=== PATIENT | female | born 1955 | race Two or more races ===

== ENCOUNTER 2020-07-20 11:34 | Emergency (ER) | payer OTHER ==
[~2020-07-20] VITALS: Ht 160 cm; Wt 81.6 kg
[2020-07-20 11:48] VITALS: BP 136/76
== END 2020-07-20 13:36 | disposition home or self-care (01) ==
LOC: ER 11:40
DX: M71.21 Synovial cyst of popliteal space [Baker], right knee (principal); J45.909 Unspecified asthma, uncomplicated
CPT/HCPCS: 73564-TC; 93971-TC

== ENCOUNTER 2022-05-23 08:10 | Emergency (ER) | payer MEDICARE, OTHER ==
[~2022-05-23] VITALS: Ht 160 cm; Wt 86.2 kg
[2022-05-23 08:19] VITALS: BP 138/74
[2022-05-23] MEDS ORDERED: diphenhydrAMINE HCL 25 MG CAPSULE PO ONE (09:00)
[2022-05-23] MEDS ORDERED: diphenhydrAMINE HCL 50 MG CAPSULE ONE (09:06)
[2022-05-23] MEDS ORDERED: DIPH25CA83 PO (09:57)
--- NOTE | 2022-05-23 10:06 | NUR ---
Patient discharged to home in stable condition. Written and verbal after care instructions given. Patient verbalizes understanding of instruction.
== END 2022-05-23 10:05 | disposition home or self-care (01) ==
LOC: ER 08:14
DX: T78.40XA Allergy, unspecified, initial encounter (principal); J45.909 Unspecified asthma, uncomplicated; Z79.899 Other long term (current) drug therapy; X58.XXXA Exposure to other specified factors, initial encounter
CPT/HCPCS: 99282; Q0163

== ENCOUNTER 2023-02-08 20:10 | Inpatient (IN) | payer OTHER ==
[~2023-02-08] VITALS: Ht 160 cm; Wt 86.6 kg
[~2023-02-08 20:10] MED LIST: DIPH25CA83 PO
--- NOTE | 2023-02-08 20:41 | NUR ---
PT UNABLE TO PROVIDE URINE AT THIS TIME, URINE CUP PROVIDED
--- NOTE | 2023-02-08 20:45 | NUR ---
PATIENT C/O ABD PAIN 10/10 AND CONSTIPATION X 3 DAYS DENIES N/V AND FEVER. TO BED 1. A/OX4. CONNECTED TO MONITOR.
--- NOTE | 2023-02-08 20:58 | NUR ---
GEOGRAPHIC AREA INTELLIGENCE OFFICER AT BEDSIDE
[2023-02-08 21:12] LABS: BASOPHILS % (AUTO) 0.1 % (0.0-2.0); EOSINOPHILS % (AUTO) 0.6 % (0.0-6.0); HEMATOCRIT 40 % (33-45); LYMPHOCYTES # (AUTO) 2.1 K/uL (0.8-4.8); LYMPHOCYTES % (AUTO) 16.6 % (20.0-44.0); MEAN CORPUSCULAR HGB CONC 32 g/dl (31.0-36.0); MEAN CORPUSCULAR VOLUME 80 fL (82-100); MONOCYTES # (AUTO) 0.9 K/uL (0.1-1.30); MONOCYTES % (AUTO) 7.1 % (2.0-12.0); NEUTROPHILS # (AUTO) 9.4 K/uL (1.8-8.9); NEUTROPHILS % (AUTO) 75.6 % (43.0-81.0); PLATELET COUNT (AUTO) 272 K/uL (150-450); RED BLOOD CELL COUNT(AUTO) 5.05 MIL/uL (4.0-5.2); WHITE BLOOD COUNT (AUTO) 12.5 K/uL (4.3-11.0)
--- NOTE | 2023-02-08 21:33 | NUR ---
COLLECTED URINE. SENT TO LAB.
--- NOTE | 2023-02-08 21:35 | NUR ---
PATIENT TAKEN TO CT
--- NOTE | 2023-02-08 21:45 | NUR ---
PATIENT BACK FROM CT
[2023-02-08 21:47] LABS: ALBUMIN 3.4 g/dL (3.4-5.0); BILIRUBIN,DIRECT 0.1 mg/dL (0.0-0.2); BILIRUBIN,TOTAL 0.5 mg/dL (0.2-1.0); CALCIUM, SERUM 8.8 mg/dL (8.5-10.1); CREATININE 0.7 mg/dL (0.6-1.3); POTASSIUM 3.4 mmol/L (3.5-5.1); TOTAL PROTEIN, SERUM 7.6 g/dL (6.4-8.2)
[2023-02-08] MEDS ORDERED: ONDANSETRON HCL/PF 4 MG/2 ML VIAL IVP ONE (22:00)
[2023-02-08] MEDS ORDERED: MORPHINE SULFATE INJ 2 MG/ML DISP.SYRIN IV ONE (22:00)
[2023-02-08] MEDS ORDERED: PIPERACILLIN /TAZOBACTAM 3.375 G in IV D5W 50 ML IV ONE (22:00)
--- NOTE | 2023-02-08 22:02 | NUR ---
RODAS ON THE PHONE WITH DR PALM
--- NOTE | 2023-02-08 22:15 | NUR ---
COVID SWAB COLLECTED AND SENT TO LAB
[2023-02-08] MEDS ORDERED: PIPERACILLIN /TAZOBACTAM 3.375 G VIAL IV ONE (22:24)
[2023-02-08] MEDS ORDERED: ONDANSETRON HCL/PF 4 MG/2 ML VIAL ONE (22:24)
[2023-02-08] MEDS ORDERED: MORPHINE SULFATE INJ 4 MG/ML DISP.SYRIN ONE (22:25)
--- NOTE | 2023-02-08 22:51 | NUR ---
XRAY AT BEDSIDE
[2023-02-08] MEDS ORDERED: hydrALAZINE HCL IV 20 MG VIAL IV PRN (23:00)
[2023-02-08] MEDS ORDERED: MORPHINE SULFATE INJ 2 MG/ML DISP.SYRIN IV PRN (23:00)
--- NOTE | 2023-02-08 23:10 | NUR ---
SPOKE TO TRAY SUPERVISOR FLOOR ASSEMBLY ON THE PHONE. CLININCALS GIVEN AND REC'D AUTH TO KEEP THE PT INPATIENT
--- NOTE | 2023-02-08 23:11 | NUR ---
room assigned [id number]
--- NOTE | 2023-02-08 23:15 | NUR ---
REPORT GIVEN TO MARJORIE WRIGHT.
--- NOTE | 2023-02-08 23:39 | NUR ---
TRANSFERRED TO THIRD FLOOR IN STABLE CONDITION
--- NOTE | 2023-02-08 23:41 | NUR ---
TRANDFERED VIA ACLS PROTOCOL
[2023-02-08] MEDS ORDERED: CEFEPIME 2 GM in IV D5W 100 ML IV ONE (23:45)
[2023-02-09] VITALS (10 sets, daily range): BP systolic 96–137; BP diastolic 55–70
[2023-02-09] MEDS: IV NS 0.9% 1,000 ML IV SCH ×2 (00:09→17:44)
[2023-02-09] MEDS: ONDANSETRON HCL/PF 4 MG/2 ML VIAL IVP PRN (00:11)
--- NOTE | 2023-02-09 00:30 | NUR ---
MS SPRING MACHINE OPERATOR NOTE RECEIVED REPORT FROM ER-RN GARRETT. PATIENT WAS BROUGHT TO THE UNIT AT AROUND 2340 VIA STRETCHER, ACCOMPANIED BY 2 ER STAFF. PATIENT WAS ADMITTED D/T ABDOMINAL PAIN AND CONSTIPATION FOR 3 DAYS. PATIENT IS ALERT AND ORIENTED X4. [place] SPEAKING BUT ABLE TO UNDERSTAND [place] CITIZ[place]. ABLE TO COMMUNICATE NEEDS WITH THE STAFFS. AFEBRILE AND NOT IN ANY FORM OF ACUTE DISTRESS. BREATHING EVEN AND NON LABORED. LUNG SOUNDS CLEAR ON AUSCULTATION. WITH IV ACCESS ON [facility] 20G-SL. EXPLAINED ADMISSION PROCESS WHICH INCLUDES SKIN ASSESSMENT WHICH THE PATIENT AGREED. SKIN IS INTACT UPON ADMISSION. BELONGINGS AND VALUABLES CHECKED AND DOCUMENTED. PATIENT MAINTAINED ON NPO ORDERED. STARTED IV FLUID OF NS AT 75ML/HR. SAFETY MEASURES IN PLACE. KEPT BED IN LOCKED AND IN LOW POSITION. SIDE RAILS UP X2. ADVISED TO USE THE CALL LIGHT WHEN IN NEED OF ASSISTANCE.
[2023-02-09] MEDS ORDERED: CEFEPIME 1 GM VIAL ONE (01:08)
[2023-02-09 04:47] LABS: BILIRUBIN,URINE NEGATIVE (NEGATIVE); COLOR,URINE YELLOW (YELLOW); LEUKOCYTE ESTERASE ,URINE NEGATIVE (NEGATIVE); NITRITE, URINE NEGATIVE (NEGATIVE); PROTEIN,URINE NEGATIVE (NEGATIVE); UGLUCOSE NEGATIVE (NEGATIVE); UROBILINOGEN,URINE 0.2 EU/dL (0.2)
[2023-02-09 06:05] LABS: BASOPHILS % (AUTO) 0.1 % (0.0-2.0); EOSINOPHILS % (AUTO) 0.3 % (0.0-6.0); HEMATOCRIT 38 % (33-45); LYMPHOCYTES # (AUTO) 2.1 K/uL (0.8-4.8); LYMPHOCYTES % (AUTO) 16.4 % (20.0-44.0); MEAN CORPUSCULAR HGB CONC 32 g/dl (31.0-36.0); MEAN CORPUSCULAR VOLUME 81 fL (82-100); MONOCYTES # (AUTO) 0.7 K/uL (0.1-1.30); MONOCYTES % (AUTO) 5.8 % (2.0-12.0); NEUTROPHILS # (AUTO) 9.8 K/uL (1.8-8.9); NEUTROPHILS % (AUTO) 77.4 % (43.0-81.0); PLATELET COUNT (AUTO) 272 K/uL (150-450); RED BLOOD CELL COUNT(AUTO) 4.66 MIL/uL (4.0-5.2); WHITE BLOOD COUNT (AUTO) 12.7 K/uL (4.3-11.0)
[2023-02-09 06:26] LABS: BILIRUBIN,TOTAL 0.5 mg/dL (0.2-1.0); CALCIUM, SERUM 8.3 mg/dL (8.5-10.1); CREATININE 0.7 mg/dL (0.6-1.3); MAGNESIUM 2.1 mg/dL (1.8-2.4); PHOSPHORUS 4.7 mg/dL (2.5-4.9)
--- NOTE | 2023-02-09 06:26 | NUR ---
MS RN CLOSING NOTE PATIENT IN BED, ASLEEP BUT EASY TP AROUSE AND RESPONSIVE. AFEBRILE AND NOT IN ANY FORM OFACUTE DISTRESS. BREATHING EVEN AND NON LABORED. WITH IV ACCESS ON RAC 20G RUNNING WITH NS AT 75ML/HR. MEDICATED ORDERED. ON IV ATB, MONITORED FOR ANY ADVERSE REACTION. MAINTAINED ON NPO ORDERED. SAFETY MEASURES IN PLACE. KEPT BED IN LOCKED AND IN LOW POSITION.SIDE RAILS UP X2. ADVISED TO USE THE CALL LIGHT WHEN IN NEED OF ASSISTANCE. ALL NURSING NEEDS ATTENDED. ENDORSED TO INCOMING SHIFT FOR CONTINUITY OF CARE.
--- NOTE | 2023-02-09 07:20 | NUR ---
ms rn received on bed, awake,alert,oriented x4,not in any form of distress, respirations even and unlabored,no sob noted, on room air w/ adequate saturation, patient is for abd surgery today w/ dr. taveras, npo at this time,all needs attended.
[2023-02-09] MEDS ORDERED: LIDOCAINE 1% INJ 50 ML MDV IJ ONE (08:51)
[2023-02-09] MEDS ORDERED: BUPIVACAINE MPF 0.5% W/EPI INJ 30 ML VIAL ONE (08:51)
[2023-02-09] MEDS ORDERED: ROCURONIUM BROMIDE 50 MG/5 ML ONE (09:13)
[2023-02-09] MEDS ORDERED: BACITRACIN ZINC OINT PACKET 1 EA PACKET TP ONE (10:54)
[2023-02-09] MEDS ORDERED: FENTANYL PF 100MCG/2ML AMPUL ONE (11:52)
[2023-02-09] MEDS ORDERED: KETOROLAC TROMETHAMINE INJ 30 MG/ML VIAL ONE (11:57)
--- NOTE | 2023-02-09 12:45 | NUR ---
ms rn patient came from surgery awake,oriented x4, s/p small intestine resection w/ dr taveras, surgical sites w/ dressing dry and intact, patient w/ clear liquid diet in am, repositioned for comfort, v/s stable and monitored.
[2023-02-09] MEDS: CEFEPIME 2 GM in IV D5W 100 ML IV SCH ×2 (13:00→20:39)
--- NOTE | 2023-02-09 18:32 | NUR ---
ms rn patient on bed, denies pain at this time, surgical dressing dry and intact, iv infusion on,all needs attended.
--- NOTE | 2023-02-09 19:42 | NUR ---
MS RN OPENING NOTE RECEIVED PATIENT IN BED AWAKE A/O X4. NOT IN ANY FORMS OF DISTRESS NOT IN PAIN AT THIS MOMENT. PATIENT ON ROOM AIR TOLERATING WELL; NO SIGNS OF SOB NOTED. IV ACCESS ON RAC #20 NOTED TO BE PATENT AND INTACT INFUSING NS 0.9% @ 75CC/HR. ABDOMINAL SURGERY SITE ACCESSED; DRESSING IS NOTED TO BE CLEAN AND INTACT. SAFETY MEASURES IMPLEMENTED; BED LOCKED AND IN LOWEST POSITION, SIDE RAILS UP X2, CALL LIGHT AND BEDSIDE TABLE WITHIN PATIENTS REACH.
[2023-02-10] MEDS: IV NS 0.9% 1,000 ML IV SCH ×2 (02:05→15:00)
[2023-02-10 05:54] LABS: EOSINOPHILS % (AUTO) 0.1 % (0.0-6.0); HEMATOCRIT 36 % (33-45); HEMOGLOBIN 11.4 g/dL (11.5-14.8); LYMPHOCYTES # (AUTO) 1.3 K/uL (0.8-4.8); LYMPHOCYTES % (AUTO) 10.1 % (20.0-44.0); MEAN CORPUSCULAR HGB CONC 32 g/dl (31.0-36.0); MEAN CORPUSCULAR VOLUME 81 fL (82-100); MONOCYTES # (AUTO) 0.8 K/uL (0.1-1.30); MONOCYTES % (AUTO) 6.2 % (2.0-12.0); NEUTROPHILS # (AUTO) 10.9 K/uL (1.8-8.9); NEUTROPHILS % (AUTO) 83.6 % (43.0-81.0); PLATELET COUNT (AUTO) 246 K/uL (150-450); RED BLOOD CELL COUNT(AUTO) 4.43 MIL/uL (4.0-5.2); WHITE BLOOD COUNT (AUTO) 13.1 K/uL (4.3-11.0)
[2023-02-10 06:09] LABS: CREATININE 0.7 mg/dL (0.6-1.3); MAGNESIUM 1.8 mg/dL (1.8-2.4); PHOSPHORUS 3.4 mg/dL (2.5-4.9); POTASSIUM 3.6 mmol/L (3.5-5.1)
[2023-02-10] MEDS: ONDANSETRON HCL/PF 4 MG/2 ML VIAL IVP PRN (06:26)
--- NOTE | 2023-02-10 06:40 | NUR ---
MS RN CLOSING NOTE PATIENT IN BED SLEEPING EASILY AWAKEN WHEN CALLED BY NAME. A/O X4. NOT IN ANY FORMS OF DISTRESS NOT IN PAIN AT THIS MOMENT. PATIENT ON ROOM AIR TOLERATING WELL; NO SIGNS OF SOB NOTED. IV ACCESS ON RAC #20 NOTED TO BE PATENT AND INTACT INFUSING NS 0.9% @ 75CC/HR. ABDOMINAL SURGERY SITE ACCESSED; DRESSING IS NOTED TO BE CLEAN AND INTACT. ALL DUE MEDICATIONS ARE GIVEN. MADE SURE PATIENT IS COMFORTABLE. ALL NEEDS ARE MET. SAFETY MEASURES IMPLEMENTED; BED LOCKED AND IN LOWEST POSITION, SIDE RAILS UP X2, CALL LIGHT AND BEDSIDE TABLE WITHIN PATIENTS REACH. WILL ENDORSE TO NEXT SHIFT NURSE FOR CONTINUITY OF CARE.
[2023-02-10 07:00] VITALS: BP 121/58
--- NOTE | 2023-02-10 07:30 | NUR ---
MS RN RECEIVED ON BEDM AWAKE,ALERT,ORIENTED X4,NOT IN ANY FORM OF DISTRESS, RESPIRATIONS EVEN AND UNLABORED,NO SOB NOTED, S/P BOWEL RESECTION SURGERY W/ DR. PALM, DRESSING DRY AND INTACT, HYPOACTIVE BOWEL SOUNDS, ON CLEAR LIQUID DIET, DENIES PAIN AT THIS TIME, ALL NEEDS ATTENDED.
[2023-02-10] MEDS: CEFEPIME 2 GM in IV D5W 100 ML IV SCH ×2 (09:05→20:34)
[2023-02-10] MEDS: ENOXAPARIN SODIUM 40 MG/0.4 ML DISP.SYRIN SQ SCH (09:09)
[2023-02-10] MEDS: ACETAMINOPHEN 325 MG TABLET PO PRN ×2 (09:53→19:14)
--- NOTE | 2023-02-10 10:00 | NUR ---
MS RN WALKED TO THE BATHROOM, TOLERATED WELL,WAS SEEN BY DR. PALM ,NO ORDERS AT THIS TIME.
[2023-02-10 16:00] VITALS: BP 117/65
--- NOTE | 2023-02-10 18:51 | NUR ---
ms rn patient on bed,no distress noted,all needs attended.
--- NOTE | 2023-02-10 19:16 | NUR ---
MS RN OPENING NOTE RECEIVED PATIENT IN BED AWAKE A/O X4. NOT IN ANY FORMS OF DISTRESS PT REPORTING PAIN PRN TYLENOL GIVEN TOLERATED WELL.PATIENT ON ROOM AIR TOLERATING WELL; NO SIGNS OF SOB NOTED. IV ACCESS ON RAC #20 NOTED TO BE PATENT AND INTACT INFUSING NS 0.9% @ 75CC/HR. ABDOMINAL SURGERY SITE ACCESSED; DRESSING IS NOTED TO BE CLEAN AND INTACT. SAFETY MEASURES IMPLEMENTED; BED LOCKED AND IN LOWEST POSITION, SIDE RAILS UP X2, CALL LIGHT AND BEDSIDE TABLE WITHIN PATIENTS REACH.
[2023-02-10 20:00] VITALS: BP 121/61
[2023-02-11] MEDS: IV NS 0.9% 1,000 ML IV SCH (04:46)
[2023-02-11] MEDS: ACETAMINOPHEN 325 MG TABLET PO PRN ×3 (04:59→22:38)
[2023-02-11] MEDS: ONDANSETRON HCL/PF 4 MG/2 ML VIAL IVP PRN ×2 (04:59→12:42)
--- NOTE | 2023-02-11 04:59 | NUR ---
RN NOTE PRN TYLENOL AND ZOFRAN GIVEN TOLERATED WELL.
[2023-02-11 05:51] LABS: BASOPHILS % (AUTO) 0.1 % (0.0-2.0); EOSINOPHILS % (AUTO) 0.8 % (0.0-6.0); HEMATOCRIT 34 % (33-45); LYMPHOCYTES # (AUTO) 1.8 K/uL (0.8-4.8); LYMPHOCYTES % (AUTO) 16.7 % (20.0-44.0); MEAN CORPUSCULAR HGB CONC 32 g/dl (31.0-36.0); MEAN CORPUSCULAR VOLUME 81 fL (82-100); MONOCYTES # (AUTO) 0.6 K/uL (0.1-1.30); MONOCYTES % (AUTO) 5.6 % (2.0-12.0); NEUTROPHILS # (AUTO) 8.5 K/uL (1.8-8.9); NEUTROPHILS % (AUTO) 76.8 % (43.0-81.0); PLATELET COUNT (AUTO) 261 K/uL (150-450); RED BLOOD CELL COUNT(AUTO) 4.23 MIL/uL (4.0-5.2)
[2023-02-11 06:04] LABS: CALCIUM, SERUM 8.6 mg/dL (8.5-10.1); CREATININE 0.6 mg/dL (0.6-1.3); POTASSIUM 3.4 mmol/L (3.5-5.1)
--- NOTE | 2023-02-11 07:04 | NUR ---
MS RN CLOSING NOTE RECEIVED PATIENT IN BED AWAKE A/O X4. NOT IN ANY FORMS OF DISTRESS .PATIENT ON ROOM AIR TOLERATING WELL; NO SIGNS OF SOB NOTED. IV ACCESS ON RAC #20 NOTED TO BE PATENT AND INTACT INFUSING NS 0.9% @ 75CC/HR. SAFETY MEASURES IMPLEMENTED; BED LOCKED AND IN LOWEST POSITION, SIDE RAILS UP X2, CALL LIGHT AND BEDSIDE TABLE WITHIN PATIENTS REACH.
--- NOTE | 2023-02-11 07:43 | NUR ---
MS KYLE OPENING NOTE Patient in bed, awake. A/O x 4, able to make needs known. On room air, breathing evenly and unlabored. No SOB or s/s of distress noted. IV access on RAC #20 infusing NS at 75 ml/hr. Denies any pain or discomfort at this time. Safety precautions in place: bed in low, locked position; siderails up x 2; call light within reach. Will continue to monitor. Addendum: 02/11/23 at 0849 by JAHAIRA PUENTE RN ADD: surgical dressing on abdomen x3, c/d/i
[2023-02-11 08:00] VITALS: BP 137/64
[2023-02-11] MEDS: CEFEPIME 2 GM in IV D5W 100 ML IV SCH ×2 (08:22→20:08)
[2023-02-11] MEDS ORDERED: IV NS 0.9% 1,000 ML IV PRN (08:57)
[2023-02-11] MEDS: ENOXAPARIN SODIUM 40 MG/0.4 ML DISP.SYRIN SQ SCH (09:14)
[2023-02-11] MEDS: POTASSIUM CL. PREMIX PERIPHER. 50 ML IV SCH ×4 (09:14→12:34)
--- NOTE | 2023-02-11 10:00 | NUR ---
RN NOTE Per patient, no Morphine for pain. Prefers Tylenol.
[2023-02-11 15:25] VITALS: BP 122/61
--- NOTE | 2023-02-11 18:47 | NUR ---
MS RN CLOSING NOTE Patient in bed, resting. A/O x 4, able to make needs known. Stable on room air, breathing evenly and unlabored. No SOB or s/s of distress noted. IV access on RAC #20 infusing NS at 75 ml/hr. Denies any pain or discomfort at this time. Due meds given. All needs attended to. Tolerating clear liquids. Safety precautions in place: bed in low, locked position; siderails up x 2; call light within reach. Will endorse to custodial services manager nurse for [facility]. Addendum: 02/11/23 at 1850 by JAHAIRA PUENTE RN ADD: surgical dressings x 3 on abdomen c/d/i.
--- NOTE | 2023-02-11 19:30 | NUR ---
MS RN OPENING NOTE RECEIVED PATIENT IN BED AWAKE . PATIENT IS A/O X4. PATIENT ON ROOM AIR TOLERATING WELL;NO PAIN NOTED. NO SIGNS OF SOB NOTED. IV ACCESS ON RAC #20 NOTED TO BE PATENT AND INTACT INFUSING NS @ 75CC/HR. ABDOMINAL SURGERY SITE DRESSING CLEAN AND INTACT. ALL SAFETY MEASURES IMPLEMENTED; BED LOCKED IN THE LOWEST POSITION, SIDE RAILS UP X2, CALL LIGHT AND BEDSIDE TABLE WITHIN PATIENTS REACH. WILL CONTINUE TO MONITOR CLOSELY.
[2023-02-11 20:00] VITALS: BP 127/59
[2023-02-12] MEDS: ACETAMINOPHEN 325 MG TABLET PO PRN ×3 (05:51→18:41)
[2023-02-12 05:59] LABS: BASOPHILS % (AUTO) 0.3 % (0.0-2.0); EOSINOPHILS % (AUTO) 4.9 % (0.0-6.0); HEMATOCRIT 31 % (33-45); HEMOGLOBIN 10.2 g/dL (11.5-14.8); LYMPHOCYTES # (AUTO) 1.9 K/uL (0.8-4.8); LYMPHOCYTES % (AUTO) 28.3 % (20.0-44.0); MEAN CORPUSCULAR HGB CONC 32 g/dl (31.0-36.0); MEAN CORPUSCULAR VOLUME 80 fL (82-100); MONOCYTES # (AUTO) 0.6 K/uL (0.1-1.30); MONOCYTES % (AUTO) 8.4 % (2.0-12.0); NEUTROPHILS # (AUTO) 3.9 K/uL (1.8-8.9); NEUTROPHILS % (AUTO) 58.1 % (43.0-81.0); PLATELET COUNT (AUTO) 251 K/uL (150-450); RED BLOOD CELL COUNT(AUTO) 3.91 MIL/uL (4.0-5.2); WHITE BLOOD COUNT (AUTO) 6.7 K/uL (4.3-11.0)
[2023-02-12 06:14] LABS: CALCIUM, SERUM 8.2 mg/dL (8.5-10.1); CREATININE 0.6 mg/dL (0.6-1.3); POTASSIUM 3.4 mmol/L (3.5-5.1)
--- NOTE | 2023-02-12 06:43 | NUR ---
MS RN CLOSING NOTE PATIENT IN BED AWAKE . PATIENT IS A/O X4. PATIENT ON ROOM AIR TOLERATING WELL;NO PAIN NOTED. NO SIGNS OF SOB NOTED. IV ACCESS ON RAC #20 NOTED TO BE PATENT AND INTACT .ABDOMINAL SURGERY SITE DRESSING CLEAN AND INTACT. ALL DUE MEDS GIVEN ORDERED.ALL SAFETY MEASURES IMPLEMENTED; BED LOCKED IN THE LOWEST POSITION, SIDE RAILS UP X2, CALL LIGHT AND BEDSIDE TABLE WITHIN PATIENTS REACH. WILL ENDORSE FOR [facility].
--- NOTE | 2023-02-12 07:36 | NUR ---
MS RN OPENING NOTE Patient in bed, awake. A/O x 4, able to make needs known. On room air, breathing evenly and unlabored. No SOB or s/s of distress noted. IV access on RAC #20 infiltrated, will re-insert IV later. Denies any pain or discomfort at this time. Patient states she's feeling better today. Surgical dressing on abdomen x3 c/d/i. Safety precautions in place: bed in low, locked position; siderails up x 2; call light within reach. Will continue to monitor.
[2023-02-12 08:00] VITALS: BP 135/78
[2023-02-12] MEDS ORDERED: POTASSIUM CHLORIDE 20 MEQ POWDER PACKET PO ONE (08:00)
[2023-02-12] MEDS: ENOXAPARIN SODIUM 40 MG/0.4 ML DISP.SYRIN SQ SCH (08:35)
--- NOTE | 2023-02-12 10:00 | NUR ---
RN NOTE IV re-inserted on Left wrist #24, flushing well.
[2023-02-12] MEDS: CEFEPIME 2 GM in IV D5W 100 ML IV SCH ×2 (10:15→20:00)
[2023-02-12 16:00] VITALS: BP 106/54
--- NOTE | 2023-02-12 18:52 | NUR ---
MS RN CLOSING NOTE Patient in bed, resting. A/O x 4, able to make needs known. Stable on room air, breathing evenly and unlabored. No SOB or s/s of distress noted. IV access on Left wrist #24, intact and patent. Due meds given. All needs attended to. dressing change done today, surgical dressing on abdomen x3 c/d/i. Diet changed to soft diet, patient tolerating well. Safety precautions in place: bed in low, locked position; siderails up x 2; call light within reach. Will endorse to night order selector nurse for [facility].
--- NOTE | 2023-02-12 19:31 | NUR ---
MS RN OPENING NOTE RECEIVED PATIENT IN BED AWAKE . PATIENT IS A/O X4. PATIENT ON ROOM AIR TOLERATING WELL;NO PAIN NOTED. NO SIGNS OF SOB NOTED. IV ACCESS ON LEFT WRIST #24 NOTED TO BE PATENT AND INTACT . ABDOMINAL SURGERY SITE DRESSING CLEAN AND INTACT. ALL SAFETY MEASURES IMPLEMENTED; BED LOCKED IN THE LOWEST POSITION, SIDE RAILS UP X2, CALL LIGHT AND BEDSIDE TABLE WITHIN PATIENTS REACH. WILL CONTINUE TO MONITOR CLOSELY.
[2023-02-12 20:00] VITALS: BP 106/54
[2023-02-13] MEDS: ACETAMINOPHEN 325 MG TABLET PO PRN ×2 (05:47→13:21)
--- NOTE | 2023-02-13 06:23 | NUR ---
MS RN CLOSING NOTE PATIENT IN BED AWAKE . PATIENT IS A/O X4. PATIENT ON ROOM AIR TOLERATING WELL;NO PAIN NOTED. NO SIGNS OF SOB NOTED. IV ACCESS ON LEFT WRIST #24 NOTED TO BE PATENT AND INTACT . ABDOMINAL SURGERY SITE DRESSING CLEAN AND INTACT. ALL DUE MEDS GIVEN ORDERED.ALL SAFETY MEASURES IMPLEMENTED; BED LOCKED IN THE LOWEST POSITION, SIDE RAILS UP X2, CALL LIGHT AND BEDSIDE TABLE WITHIN PATIENTS REACH. WILL CONTINUE TO MONITOR CLOSELY.
--- NOTE | 2023-02-13 07:20 | NUR ---
MS CLINIC LPN OPENING NOTES PATIENT WAS RECEIVED IN BED, AWAKE, ALERT AOX4. ON ROOM AIR, NO S/S OF SOB. STATES MILD PAIN AND DISCOMFORT ON RIGHT SIDE LOWER BACK. PATIENT RECEIVED MEDICATION ON PREVIOUS SHIFT, WILL CONTINUE TO MONITOR PAIN LEVEL. IV ACCESS GAG #24. SAFETY PRECAUTION MAINTAINED: BED IN THE LOWEST, LOCKED POSITION WITH SR X2. CALL LIGHT WITHIN REACH. PATIENT IS ABLE TO MAKE ALL NEEDS KNOWN.
[2023-02-13 08:00] VITALS: BP 130/67
[2023-02-13] MEDS: ENOXAPARIN SODIUM 40 MG/0.4 ML DISP.SYRIN SQ SCH (08:12)
[2023-02-13] MEDS: CEFEPIME 2 GM in IV D5W 100 ML IV SCH (09:00)
[2023-02-13 09:23] LABS: BASOPHILS % (AUTO) 0.4 % (0.0-2.0); EOSINOPHILS % (AUTO) 4.4 % (0.0-6.0); HEMATOCRIT 35 % (33-45); HEMOGLOBIN 11.5 g/dL (11.5-14.8); LYMPHOCYTES % (AUTO) 28.6 % (20.0-44.0); MEAN CORPUSCULAR HGB CONC 33 g/dl (31.0-36.0); MEAN CORPUSCULAR VOLUME 81 fL (82-100); MONOCYTES # (AUTO) 0.5 K/uL (0.1-1.30); MONOCYTES % (AUTO) 7.2 % (2.0-12.0); NEUTROPHILS % (AUTO) 59.4 % (43.0-81.0); PLATELET COUNT (AUTO) 314 K/uL (150-450); RED BLOOD CELL COUNT(AUTO) 4.37 MIL/uL (4.0-5.2); WHITE BLOOD COUNT (AUTO) 6.8 K/uL (4.3-11.0)
[2023-02-13 09:36] LABS: CALCIUM, SERUM 8.6 mg/dL (8.5-10.1); CREATININE 0.7 mg/dL (0.6-1.3); POTASSIUM 3.4 mmol/L (3.5-5.1)
[2023-02-13] MEDS ORDERED: IBUP-1955 PO (09:39)
[2023-02-13] MEDS ORDERED: LEVO500T90 PO (09:47)
--- NOTE | 2023-02-13 14:45 | NUR ---
MS BOILER ENGINEER Discharge Note Received order for discharge. Patient is AOx4, able to make needs known. Patient shows no s/s of SOB, breathing evenly and unlabored on room air. Patient pain level is 2 during discharge, provided instruction for pain management and medications. Patient was given discharged instruction both verbally and in written form, verbalized understanding. Patient belongings accounted for, belonging sheet signed. IV access removed, catheter tip intact; pressure dressing signed and no s/s of bleeding. Patent sent home with walker. Patient left in sable condition via uber.
== END 2023-02-13 14:00 | disposition home or self-care (01) | DRG 230 ==
LOC: ER 20:11 → MED 23:18
PROVIDERS: ADMIT Internal Medicine; ATTEND Internal Medicine
PROC: 0DB80ZZ Excision of Small Intestine, Open Approach (ICD-10-PCS; principal; 2023-02-09)
DX: T18.3XXA Foreign body in small intestine, initial encounter (principal); K63.1 Perforation of intestine (nontraumatic); E43 Unspecified severe protein-calorie malnutrition; X58.XXXA Exposure to other specified factors, initial encounter; Y92.89 Other specified places as the place of occurrence of the external cause; Z20.822 Contact with and (suspected) exposure to COVID-19; J45.909 Unspecified asthma, uncomplicated; G62.9 Polyneuropathy, unspecified; E66.9 Obesity, unspecified; E87.6 Hypokalemia; E88.09 Other disorders of plasma-protein metabolism, not elsewhere classified; K59.00 Constipation, unspecified; R73.9 Hyperglycemia, unspecified; Z68.33 Body mass index [BMI] 33.0-33.9, adult
CPT/HCPCS: 36415; 71045-TC; 80048-TC; 80053-TC; 80076-TC; 83735-TC; 84100-TC; 85025-TC; 87081-TC; 88307-TC; 93307-TC; A4223; C9803; G0378; J0690; J0692; J1650; J1885; J2270; J2405; J2543; J2704; J3010; J3480; J3490; J7030; J7040; J7050; J7060

== ENCOUNTER 2024-06-24 16:02 | Emergency (ER) | payer OTHER ==
[~2024-06-24] VITALS: Ht 160 cm; Wt 88.0 kg
[~2024-06-24 16:02] MED LIST changes: +IBUP-1955 PO; +LEVO500T90 PO
[2024-06-24 16:30] VITALS: BP 125/69; TEMP 98.2
[2024-06-24] MEDS ORDERED: LIDOCAINE 1% INJ 50 ML MDV IJ ONE (17:36)
[2024-06-24] MEDS ORDERED: CEPHALEXIN MONOHYDRATE 500 MG CAPSULE PO ONE (18:22)
[2024-06-24] MEDS ORDERED: CEPH500C2 PO (18:34)
[2024-06-24 18:40] VITALS: O2SAT 97
[2024-06-24] MEDS: CEPHALEXIN MONOHYDRATE 500 MG CAPSULE PO ONE (18:49)
[2024-06-24] MEDS: LIDOCAINE /MPF 1% VIAL 5 ML VIAL IJ ONE (18:49)
== END 2024-06-24 18:51 | disposition home or self-care (01) ==
LOC: ER 17:19
DX: L03.012 Cellulitis of left finger (principal); J45.909 Unspecified asthma, uncomplicated; Z88.0 Allergy status to penicillin; Z60.2 Problems related to living alone
CPT/HCPCS: 99283; 10060; J3490

== ENCOUNTER 2024-08-29 08:39 | Emergency (ER) | payer OTHER ==
[~2024-08-29] VITALS: Ht 160 cm; Wt 88.0 kg
[~2024-08-29 08:39] MED LIST changes: +CEPH500C2 PO
[2024-08-29] MEDS ORDERED: KETOROLAC TROMETHAMINE 15 MG/ML VIAL ONE (09:01)
[2024-08-29] MEDS ORDERED: FAMOTIDINE/PF INJ 20 MG/2 ML VIAL IV ONE (09:02)
[2024-08-29] MEDS: KETOROLAC TROMETHAMINE 15 MG/ML VIAL IV ONE (09:12)
[2024-08-29] MEDS: FAMOTIDINE/PF INJ 20 MG/2 ML VIAL IV ONE (09:18)
[2024-08-29 09:24] LABS: BASOPHILS % (AUTO) 0.4 % (0.0-2.0); EOSINOPHILS # (AUTO) 0.2 K/uL (0.0-0.7); EOSINOPHILS % (AUTO) 2.5 % (0.0-6.0); HEMATOCRIT 39 % (33-45); LYMPHOCYTES # (AUTO) 2.6 K/uL (0.8-4.8); LYMPHOCYTES % (AUTO) 40.2 % (20.0-44.0); MEAN CORPUSCULAR HEMOGLOBIN 28 PG (26.0-33.0); MEAN CORPUSCULAR HGB CONC 34 g/dl (31.0-36.0); MEAN CORPUSCULAR VOLUME 83 fL (82-100); MONOCYTES # (AUTO) 0.5 K/uL (0.1-1.30); MONOCYTES % (AUTO) 7.4 % (2.0-12.0); NEUTROPHILS # (AUTO) 3.2 K/uL (1.8-8.9); NEUTROPHILS % (AUTO) 49.5 % (43.0-81.0); PLATELET COUNT (AUTO) 246 K/uL (150-450); RED BLOOD CELL COUNT(AUTO) 4.66 MIL/uL (4.0-5.2); RED CELL DISTRIBUTION WIDTH 13.3 % (11.5-15.0); WHITE BLOOD COUNT (AUTO) 6.5 K/uL (4.3-11.0)
[2024-08-29 09:31] LABS: APPEARANCE,URINE CLEAR (CLEAR); BILIRUBIN,URINE NEGATIVE (NEGATIVE); BLOOD, URINE TRACE-INTA Ery/uL (NEGATIVE); COLOR,URINE YELLOW (YELLOW); KETONES,URINE NEGATIVE (NEGATIVE); LEUKOCYTE ESTERASE ,URINE NEGATIVE (NEGATIVE); NITRITE, URINE NEGATIVE (NEGATIVE); PROTEIN,URINE NEGATIVE (NEGATIVE); UGLUCOSE NEGATIVE (NEGATIVE); UROBILINOGEN,URINE 0.2 EU/dL (0.2)
[2024-08-29 09:39] LABS: ALBUMIN 3.3 g/dL (3.4-5.0); BILIRUBIN,DIRECT 0.1 mg/dL (0.0-0.2); BILIRUBIN,TOTAL 0.5 mg/dL (0.2-1.0); CALCIUM, SERUM 8.7 mg/dL (8.5-10.1); CREATININE 0.7 mg/dL (0.6-1.3); POTASSIUM 3.8 mmol/L (3.5-5.1); TOTAL PROTEIN, SERUM 7.2 g/dL (6.4-8.2)
[2024-08-29 09:49] LABS: ADD URINE CULTURE NO; BACTERIA,URINE Few /HPF (None Seen); WBC,URINE 0-2 /HPF (0-3)
[2024-08-29] MEDS ORDERED: TRAM50TA2 PO (10:01)
[2024-08-29 10:07] VITALS: BP 145/70; TEMP 98; O2SAT 98
== END 2024-08-29 10:08 | disposition home or self-care (01) ==
LOC: ER 08:47
DX: M54.59 Other low back pain (principal); J45.909 Unspecified asthma, uncomplicated; Z60.2 Problems related to living alone
CPT/HCPCS: 99285; 96374; 72131; 96375; 85025; 80048; 80076; 81001; 36415; J3490; J1885

== ENCOUNTER 2024-10-30 00:11 | Emergency (ER) | payer OTHER ==
[~2024-10-30] VITALS: Ht 160 cm; Wt 90.7 kg
[~2024-10-30 00:11] MED LIST changes: +TRAM50TA2 PO
[2024-10-30 03:15] LABS: BASOPHILS % (AUTO) 0.2 % (0.0-2.0); EOSINOPHILS % (AUTO) 0.1 % (0.0-6.0); HEMATOCRIT 42 % (33-45); LYMPHOCYTES # (AUTO) 0.2 K/uL (0.8-4.8); LYMPHOCYTES % (AUTO) 3.1 % (20.0-44.0); MEAN CORPUSCULAR HEMOGLOBIN 28 PG (26.0-33.0); MEAN CORPUSCULAR HGB CONC 33 g/dl (31.0-36.0); MEAN CORPUSCULAR VOLUME 84 fL (82-100); MONOCYTES # (AUTO) 0.7 K/uL (0.1-1.30); MONOCYTES % (AUTO) 8.7 % (2.0-12.0); NEUTROPHILS # (AUTO) 7.1 K/uL (1.8-8.9); NEUTROPHILS % (AUTO) 87.9 % (43.0-81.0); PLATELET COUNT (AUTO) 211 K/uL (150-450); RED BLOOD CELL COUNT(AUTO) 5.02 MIL/uL (4.0-5.2); RED CELL DISTRIBUTION WIDTH 13.9 % (11.5-15.0); WHITE BLOOD COUNT (AUTO) 8.1 K/uL (4.3-11.0)
[2024-10-30 03:34] LABS: CALCIUM, SERUM 8.5 mg/dL (8.5-10.1); CREATININE 0.8 mg/dL (0.6-1.3); POTASSIUM 3.6 mmol/L (3.5-5.1)
[2024-10-30 03:37] LABS: LACTIC ACID 1.6 mmol/L (0.4-2.0)
[2024-10-30 03:46] LABS: ALBUMIN 3.4 g/dL (3.4-5.0); BILIRUBIN,TOTAL 0.6 mg/dL (0.2-1.0); TOTAL PROTEIN, SERUM 7.9 g/dL (6.4-8.2)
[2024-10-30] MEDS ORDERED: ONDA4TAB5 PO (04:11)
[2024-10-30 05:09] VITALS: BP 125/62; TEMP 98; O2SAT 99
[2024-10-30 05:14] LABS: APPEARANCE,URINE CLEAR (CLEAR); BILIRUBIN,URINE 1+ (NEGATIVE); BLOOD, URINE TRACE-INTA Ery/uL (NEGATIVE); COLOR,URINE YELLOW (YELLOW); KETONES,URINE 1+ mg/dL (NEGATIVE); LEUKOCYTE ESTERASE ,URINE NEGATIVE (NEGATIVE); NITRITE, URINE NEGATIVE (NEGATIVE); PROTEIN,URINE TRACE mg/dl (NEGATIVE); UGLUCOSE NEGATIVE (NEGATIVE); UROBILINOGEN,URINE 0.2 EU/dL (0.2)
[2024-10-30 05:32] LABS: ADD URINE CULTURE NO; BACTERIA,URINE Rare /HPF (None Seen); MUCUS,URINE Few /LPF (None Seen); WBC,URINE 0-2 /HPF (0-3)
== END 2024-10-30 05:09 | disposition home or self-care (01) ==
LOC: ER 00:13
DX: R10.9 Unspecified abdominal pain (principal); R11.2 Nausea with vomiting, unspecified; R50.9 Fever, unspecified; R19.7 Diarrhea, unspecified; J45.909 Unspecified asthma, uncomplicated; Z60.2 Problems related to living alone
CPT/HCPCS: 36415; 71045-TC; 80053-TC; 81001; 83605-TC; 83690-TC; 83880; 84484-TC; 85025-TC; 87040-TC

== ENCOUNTER 2025-01-09 08:07 | Emergency (ER) | payer OTHER ==
[~2025-01-09] VITALS: Ht 160 cm; Wt 89.8 kg
[~2025-01-09 08:07] MED LIST changes: +ONDA4TAB5 PO
[2025-01-09 08:10] VITALS: BP 133/52; TEMP 98.3
[2025-01-09] MEDS ORDERED: CLIN300C12 PO (08:19)
[2025-01-09 08:23] VITALS: O2SAT 98
== END 2025-01-09 08:38 | disposition home or self-care (01) ==
LOC: ER 08:18
DX: H04.309 Unspecified dacryocystitis of unspecified lacrimal passage (principal); J45.909 Unspecified asthma, uncomplicated; Z60.2 Problems related to living alone

== ENCOUNTER 2025-02-10 02:14 | Emergency (ER) | payer OTHER ==
[~2025-02-10] VITALS: Ht 160 cm; Wt 81.6 kg
[~2025-02-10 02:14] MED LIST changes: +CLIN300C12 PO
[2025-02-10 03:23] LABS: BASOPHILS % (AUTO) 0.3 % (0.0-2.0); EOSINOPHILS # (AUTO) 0.3 K/uL (0.0-0.7); EOSINOPHILS % (AUTO) 3.4 % (0.0-6.0); HEMATOCRIT 40 % (33-45); HEMOGLOBIN 13.4 g/dL (11.5-14.8); LYMPHOCYTES # (AUTO) 2.7 K/uL (0.8-4.8); LYMPHOCYTES % (AUTO) 33.6 % (20.0-44.0); MEAN CORPUSCULAR HEMOGLOBIN 27 PG (26.0-33.0); MEAN CORPUSCULAR HGB CONC 33 g/dl (31.0-36.0); MEAN CORPUSCULAR VOLUME 82 fL (82-100); MONOCYTES # (AUTO) 0.5 K/uL (0.1-1.30); MONOCYTES % (AUTO) 6.6 % (2.0-12.0); NEUTROPHILS # (AUTO) 4.5 K/uL (1.8-8.9); NEUTROPHILS % (AUTO) 56.1 % (43.0-81.0); PLATELET COUNT (AUTO) 262 K/uL (150-450); RED BLOOD CELL COUNT(AUTO) 4.87 MIL/uL (4.0-5.2); RED CELL DISTRIBUTION WIDTH 13.7 % (11.5-15.0); WHITE BLOOD COUNT (AUTO) 7.9 K/uL (4.3-11.0)
[2025-02-10 03:29] LABS: CALCIUM, SERUM 9.3 mg/dL (8.5-10.1); CREATININE 0.8 mg/dL (0.6-1.3)
[2025-02-10 03:42] LABS: INR 1.41 (0.91-1.10); PROTHROMBIN TIME 14.6 SECS (9.2-11.1)
[2025-02-10 03:47] LABS: APPEARANCE,URINE TURBID (CLEAR); BILIRUBIN,URINE NEGATIVE (NEGATIVE); BLOOD, URINE 3+ Ery/uL (NEGATIVE); COLOR,URINE RED (YELLOW); KETONES,URINE NEGATIVE (NEGATIVE); LEUKOCYTE ESTERASE ,URINE NEGATIVE (NEGATIVE); NITRITE, URINE NEGATIVE (NEGATIVE); PH,URINE 6.5 (5.0-8.0); PROTEIN,URINE 2+ mg/dl (NEGATIVE); UGLUCOSE NEGATIVE (NEGATIVE); UROBILINOGEN,URINE 0.2 EU/dL (0.2)
[2025-02-10 03:48] LABS: ADD URINE CULTURE NO; BACTERIA,URINE Rare /HPF (None Seen); RBC,URINE TOO NUMEROUS TO COUN /HPF (0-2); SQUAMOUS EPITHELIAL CELL,UR Rare /HPF (None Seen); WBC,URINE 0-2 /HPF (0-3)
[2025-02-10 04:10] VITALS: BP 128/84; TEMP 97.8; O2SAT 98
== END 2025-02-10 04:10 | disposition home or self-care (01) ==
LOC: ER 02:17
DX: D68.9 Coagulation defect, unspecified (principal); R10.2 Pelvic and perineal pain; R31.9 Hematuria, unspecified; J45.909 Unspecified asthma, uncomplicated; Z86.718 Personal history of other venous thrombosis and embolism; Z79.899 Other long term (current) drug therapy
CPT/HCPCS: 36415; 80048-TC; 81001; 85025-TC; 85730-TC